=== PATIENT | female | born 1990 | race Caucasian/White ===

== ENCOUNTER 2025-06-26 14:53 | Outpatient (REF) | payer MEDICAID, SELFPAY ==
--- OUTSIDE RECORDS SUMMARY | 2025-06-26 14:40 | XMS_ITS | Encounter Summary ---
Author Organization [employer] Address [address] [place] [id number] Care Team Providers Care Distribution Sales Manager Name Role Phone Girish Spaulding MD Primary Care Prov ider Reason for Referral * Consultation (Urgent) - Pending Review Specialty Diagnoses / Procedures Referred By Contac t Referred To Contact Physical Therapy Diagnoses Pain of left scapula Taylor Daily DO [address] [place] [address] Phone: tel: fax: Referral ID Status Reason Start Date Expiration Date Visits Requested Visits Authorized [id number] Pending Review Specialty Services Required 06/26/2025 06/26/2026 1 1 * Imaging (Routine) - Authorized Specialty Diagnoses / Procedures Referred By Contac t Referred To Contact Radiology Diagnoses Pelvic pain Menorrhagia with regular cycle Procedures US Pelvis Transvaginal Taylor Daily DO [address] [place] [address] Phone: tel: fax: [facility] [address] [facility], [address] [place] [address] Phone: tel: fax: Referral ID Status Reason Start Date Expiration Date V isits Requested Visits Authorized [id number] Authorized 06/26/2025 06/26/2026 1 1 * Imaging (Routine) - Authorized Specialty Diagnoses / Procedures Referred By Tayo aggarwal Referred To Contact Radiology Diagnoses Pelvic pain Menorrhagia with regular cycle Procedures Us Pelvis complete Taylor Daily DO [address] [place] [address] Phone: tel: fax: [facility] [address] [facility], [address] [place] [address] Phone: tel: fax: Referral ID Status Reason Start Date Expiration Date V isits Requested Visits Authorized [id number] Authorized 06/26/2025 06/26/2026 1 1 Encounter Details Date Type Department Care Team (Late st Contact Info) Description 06/26/2025 2:40 PM EDT Office Visit [facility] [address] [place], [place] [id number] Pain of left scapula (Primary Dx); Pelvic pain; Menorrhagia with regular cycle Social History Tobacco Use Types Packs/Day Years Used Date Smoking Tobacco: Never Smokeless Tobacco: Never Alcohol Use Standard Drinks/Week Comments Yes 0 (1 standard drink = 0.6 oz pur e alcohol) once every 2-3 months Depression Answer Date Recorded Patient Health Questionnaire-9 Score 0 06/03/2025 Patient Health Questionnaire-9 Score 0 06/03/2025 Last PHQ-9: Questionnaire Data Not on file 0 06/03/2025 Housing Stability Answer Date Recorded What is your housing situation today? I have phillip stanley 06/03/[address] you li ve. Do you have problems with any of the following? None of the above 06/03/2025 Food Insecurity Answer Date Recorded Within the past 12 months, y ou worried that your food would run out before you got money to buy more: Never True 06/03/2025 Within the past 12 months,th e food you bought just didn't last and you didn't have enough money to get more: Never True 09/2025 Transportation Answer Date Recorded In the past 12 months, has l ack of transportation kept you from medical appts, meetings, work or from getting things needed for daily living? No 06/03/2025 Utilities Answer Date Recorded In the past 12 months, has t he electric, gas, oil or water company threatened to shut off services in your home? No 06/03/2025 Depression Answer Date Recorded Patient Health Questionnaire-2 Score 0 06/03/2025 Internet Access Answer Date Recorded Internet Access Q1 Yes 06/03/2025 Internet Access Q2 Not on file 06/03/2025 Comments No Sex and Gender Information Value Date Recorded Sex Assigned at Female 08/22/2022 10:37 AM EDT Legal Sex Female 10:37 AM EDT Gender Identity Female 08/22/2022 10:37 AM EDT Sexual Orientation Straight 08/22/2022 10 :37 AM EDT documented as of this encounter Last Filed Vital Signs Vital Sign Reading Time Taken Comments Blood Pressure 123/77 06/26/2025 2:09 PM EDT Pulse 80 06/26/2025 2:09 PM EDT Temperature 36.8 C (98.3 F) 06/26/2025 2:09 PM EDT Respiratory Rate 20 06/26/2025 2:09 PM EDT Oxygen Saturation 99% 06/26/2025 2:09 PM EDT Inhaled Oxygen Concentration - - Weight 87.5 kg (193 lb) 06/26/2025 2:09 PM EDT Height 160 cm (5' 3 ) 06/26/2025 2:09 PM EDT Body Mass Index 34.19 06/26/2025 2:09 PM EDT documented in this encounter Plan of Treatment Scheduled Orders Name Type Priority Associated Diagnoses Order Schedule POCT Urine Point of Care Testing Routine Pain of left scapula Pelvic pain Menorrhagia with regular cycle Ordered: 06/26/2025 Chlamydia/N. Gonorrhoeae RNA, TMA, Vaginal Microbiology Routine Pain of left scapula Pelvic pain Menorrhagia with regular cycle Ordered: 06/26/2025 Bacterial Vaginosis Panel Microbiology Routine Pain of left scapula Pelvic pain Menorrhagia with regular cycle Ordered: 06/26/2025 T4, Free Lab Routine Pain of left scapula Pelvic pain Menorrhagia with regular cycle Expected: 06/26/2025 (Approximate), Expires: 06/26/2026 Lipid Panel, Standard Lab Routine Pain of left scapula Pelvic pain Menorrhagia with regular cycle Expected: 06/26/2025 (Approximate), Expires: 06/26/2026 TSH Lab Routine Pain of left scapula Pelvic pain Menorrhagia with regular cycle Expected: 06/26/2025 (Approximate), Expires: 06/26/2026 Vitamin D, 25-Hydroxy, Total, Immunoassay Lab Routine Pain of left scapula Pelvic pain Menorrhagia with regular cycle Expected: 06/26/2025 (Approximate), Expires: 06/26/2026 Hepatic Function Panel Lab Routine Pain of left scapula Pelvic pain Menorrhagia with regular cycle Expected: 06/26/2025 (Approximate), Expires: 06/26/2026 Hemoglobin A1c Lab Routine Pain of left scapula Pelvic pain Menorrhagia with regular cycle Expected: 06/26/2025 (Approximate), Expires: 06/26/2026 Basic Metabolic Panel Lab Routine Pain of left scapula Pelvic pain Menorrhagia with regular cycle Expected: 06/26/2025 (Approximate), Expires: 06/26/2026 Hepatitis B surface antigen, EIA Lab Routine Pain of left scapula Pelvic pain Menorrhagia with regular cycle Expected: 06/26/2025 (Approximate), Expires: 06/26/2026 HIV-1/2 Antigen and Antibodies, Fourth Generation, with Reflexes Lab Routine Pain of left scapula Pelvic pain Menorrhagia with regular cycle Expected: 06/26/2025 (Approximate), Expires: 06/26/2026 Hepatitis C Antibody with Reflex to HCV, RNA, Quantitative, Real-Time PCR Lab Routine Pain of left scapula Pelvic pain Menorrhagia with regular cycle Expected: 06/26/2025, Expires: 06/26/2026 RPR (Monitor) with Reflex to Titer Lab Routine Pain of left scapula Pelvic pain Menorrhagia with regular cycle Expected: 06/26/2025, Expires: 06/26/2026 Hepatitis B Surface Antibody, Qualitative Lab Routine Pain of left scapula Pelvic pain Menorrhagia with regular cycle Expected: 06/26/2025 (Approximate), Expires: 06/26/2026 Vitamin B12 (Cobalamin) and Folate Panel, Serum Lab Routine Pain of left scapula Pelvic pain Menorrhagia with regular cycle Expected: 06/26/2025, Expires: 06/26/2026 Ferritin Lab Routine Pain of left scapula Pelvic pain Menorrhagia with regular cycle Expected: 06/26/2025, Expires: 06/26/2026 Iron And Total Iron Binding Capacity Lab Routine Pain of left scapula Pelvic pain Menorrhagia with regular cycle Expected: 06/26/2025, Expires: 06/26/2026 Hepatitis A Antibody, Total Lab Routine Pain of left scapula Pelvic pain Menorrhagia with regular cycle Expected: 06/26/2025 (Approximate), Expires: 06/26/2026 Hepatitis B Core Antibody, Total Lab Routine Pain of left scapula Pelvic pain Menorrhagia with regular cycle Expected: 06/26/2025 (Approximate), Expires: 06/26/2026 CBC auto differential Lab Routine Pain of left scapula Pelvic pain Menorrhagia with regular cycle Expected: 06/26/2025 (Approximate), Expires: 06/26/2026 Us Pelvis complete Imaging Routine Pelvic pain Menorrhagia with regular cycle Expected: 06/26/2025, Expires: 06/26/2026 US Pelvis Transvaginal Imaging Routine Pelvic pain Menorrhagia with regular cycle Expected: 06/26/2025, Expires: 06/26/2026 Scheduled Referrals Name Type Priority Associated Diagnoses Orde r Schedule Referral to Physical Therapy Outpatient Referral Urgent Pain of left scapula Expected: 06/26/2025 (Approximate), Expires: 06/26/2026 documented as of this encounter Visit Diagnoses Diagnosis Pain of left scapula- Primary Pelvic pain Menorrhagia with regular cycle documented in this encounter Additional Health Concerns Assessment Noted Time PHQ-9 Depression Total Score: 0 06/03/20 25 2:45 PM EDT documented as of this encounter Care Teams Distribution Sales Manager Relationship Specialty Start Date End Date Girish Spaulding MD [address] [place] [phone] PCP - General Internal Medicine 03/02/22 documented as of this encounter
--- OUTSIDE RECORDS SUMMARY | 2025-06-26 16:03 | XMS_ITS | Encounter Summary ---
Author Organization [email or web address] Address [address] [facility] [address]t [place] [address] Care Team Providers Care Research Food Technologist Name Role Phone Girish Spaulding MD Primary Care Prov ider Encounter Details Date Type Department Care Team (Latest Contact Info) Description 06/26/2025 Travel Social History Tobacco Use Types Packs/Day Years [...] AM EDT documented as of this encounter Plan of Treatment Not on file documented as of this encounter Visit Diagnoses Not on filedocumented in this encounter Additional Health Concerns Assessment Noted Time PHQ-9 Depression Total Score: 0 06/03/20 25 2:45 PM EDT documented as of this encounter Care Teams Research Food Technologist Relationship Specialty Start Date End Date Girish Spaulding MD [address] [place] [id number] PCP - General Internal Medicine 03/02/22 documented as of this encounter
--- OUTSIDE RECORDS SUMMARY | 2025-06-26 16:03 | XMS_ITS | Encounter Summary ---
Author Organization [employer] Address [address] [facility] 7[address] [place] [address] Care Team Providers Care Timber Buyer Name Role Phone Girish Spauldign MD Primary Care Prov ider Encounter Details Date Type Department Care Team ([facility] st Contact Info) Description 06/25/[address] [facility] () Department [address] [place] [id number] Provider, Population Health Generic Social History Tobacco Use Types Packs/Day Years [...] Access Q2 Not on file 06/03/2025 Comments Unknown Sex and Gender Information Value Date Recorded [...] documented as of this encounter Care Teams Timber Buyer Relationship Specialty Start Date End Date Girish Spaulding MD [address] [place] [phone] PCP - General Internal Medicine 03/02/22 documented as of this encounter
--- OUTSIDE RECORDS SUMMARY | 2025-06-26 16:03 | XMS_ITS | Clinical Summary ---
Author Organization [employer] Address [address] [place] [address] [address] [place] [address] Care Team Providers Care Managed Care Provider Name Role Phone Girish Spaulding MD Primary Care Prov ider Allergies No known active allergies Medications phentermine 15 MG capsule Take 1 capsule (15 mg) by mouth before breakfast. 30 capsule 5 07/03/20 25 Active topiramate (Topamax) 50 MG tablet Take 1 tablet (50 mg) by mouth Once per day. 90 tablet 3 5 06/03/20 26 Active medroxyPROGESTE Bryan (Provera) 5 MG tablet Take 1 tablet (5 mg) by mouth Once per day for 10 days. 10 tablet 5 07/06/20 25 Active baclofen (Lioresal) 10 MG tablet Take 1 tablet (10 mg) by mouth if needed in the morning, at noon, and at bedtime for muscle spasms. 60 tablet 1 5 08/25/20 25 Active acetaminophen (Tylenol 8 Hour) 650 MG ER tablet Take 1 tablet (650 mg) by mouth every 8 (eight) hours if needed for mild pain. Do not crush, chew, or split. 40 tablet 1 5 07/26/20 25 Active Diclofenac Sodium 1 % gel Apply 2 g topically if needed in the morning, at noon, in the evening, and at bedtime (pain). 150 g 3 5 Active naproxen (Naprosyn) 500 MG tablet Take 1 tablet (500 mg) by mouth if needed in the morning and at bedtime for mild pain. 40 tablet 1 5 06/26/20 26 Active lidocaine (Lidoderm) 5 % patch Apply 1 patch topically if needed each day for mild pain. Remove & discard patch within 12 hours or as directed by . 30 patch 3 5 06/26/20 26 Active Active Problems Problem Noted Date Diagnosed Date Obesity (BMI 30.0-34.9) 06/26/2025 Assessment & Plan (06/26/2025 2:20 PM EDT): Will start on phentermine and topamax, risk vs benefits were discussed, follow up in 3 months Encounter for medical examination to establish c are 06/03/2025 Assessment & Plan (06/03/2025 3:12 PM EDT): Last pcp visit 2020 ER:- Hospitalization: cse 2015, 2014 due to ovary cyst PMHx: - Pshx: 2015 ovary cyst, csec 2015, abdominoplasty 2022 All:- Meds: - Menarche 11 LMP: 05/28/25 A0 Sexually active with 1 partner has IUD since 2020 Encounters Date Type Department Care Team Description 06/26/2025 2:40 PM EDT Office Visit [facility] [address] [place], [place] [phone] Pain of left scapula (Primary Dx); Pelvic pain; Menorrhagia with regular cycle 06/26/2025 Travel 06/25/2025 Population Health Risk Score [facility] Department [address] [phone] Provider, Population Health Generic 06/03/2025 2:45 PM EDT Telemedicine [facility] [address] [place], [place] [phone] Girish Spaulding MD Encounter for medical examination to establish care (Primary Dx); Obesity (BMI 30.0-34.9) 06/03/2025 Travel 06/02/2025 Travel from Last 3 Months Family History Medical History Relation Name Comments Hypertension Father Hyperlipidemia Mother Hypertension Mother Breast cancer Mother's Sister Relation Name Status Comments Father Mother Mother's Sister Social History Tobacco Use Types Packs/Day Years Used Date Smoking Tobacco: Never Smokeless Tobacco: Never Tobacco Cessation:Counseling Given: Not Answered Alcohol Use Standard Drinks/Week Comments Yes 0 [...] Orientation Straight 08/22/2022 10 :37 AM EDT Last Filed Vital Signs Vital Sign Reading [...] Mass Index 34.19 06/26/2025 2:09 PM EDT Plan of Treatment Health Maintenance Due Date Last Done Comments Family Planning (PISQ) 2003 HPV Vaccines (1 - 3-dose series) 2003 Hepatitis C Screening 2006 DTaP/Tdap/Td Vaccines (1 - Tdap) 2007 Hepatitis B Vaccines (1 of 3 - 19+ 3-dose series) 2007 COVID-19 Vaccine ( - 2024-2 6 season) 2025 08/02/2021, 07/05/2021 Influenza Vaccine (#1) 2025 Cervical Cancer Screening 03/30/2026 HPV/Cotest 03/30/2026 03/30/2021 Pap Smear 03/30/2026 03/30/2021 Disability Screening 06/02/2026 06/02/2025 Alcohol/Substance Use Screening 06/03/2026 06/03/2025 Depression Screening 06/03/2026 06/03/2025, 06/03/2025 SDOH Screening 06/03/2026 06/03/2025 Tobacco Screening 06/26/2026 06/26/2025 Zoster Vaccines (1 of 2) 2038 RSV Patients and Patients Aged 60 years or older (1 - 1-dose 75+ series) 2063 HIV Screening Completed 03/16/2021 HIB Vaccines Aged Out No longer eligi ble based on patient's age to complete this topic Hepatitis A Vaccines Aged Out No long er eligible based on patient's age to complete this topic IPV Vaccines Aged Out No longer eligi ble based on patient's age to complete this topic Meningococcal B Vaccine Aged Out No l onger eligible based on patient's age to complete this topic Meningococcal Vaccine Aged Out No abraham constantine eligible based on patient's age to complete this topic Pneumococcal Vaccine: Pediatrics (0 to 5 Years) and At-Risk Patients (6 to 49) Years Aged Out No longer eligible b ased on patient's age to complete this topic RSV under 20 months Aged Out No longe r eligible based on patient's age to complete this topic Rotavirus Vaccines Aged Out No longer eligible based on patient's age to complete this topic Procedures Procedure Name Priority Date/Time Associated Diagnosis Comments HPV MRNA E6/E7 Routine 03/30/2021 9:40 AM EDT THINPREP PAP Routine 03/30/2021 9:40 AM EDT HIV 1/2 ANTIGEN/ANTIBODY, FOURTH GENERATION W/RFL Routine 03/16/2021 11:25 AM EDT from Last 3 Months or Most Recently Relevant to Health Maintenance Results * THINPREP PAP (03/30/2021 9:40 AM EDT) Clinical Information: None given [facility] COMMENT SEE COMMENT [facility] Comment: EXPLANATORY NOTE: The Pap is a screening test for cervical cancer. It is not a diagnostic test and is subject to false negative and false positive results. It is most reliable when a satisfactory sample, regularly obtained, is submitted with relevant clinical findings and history, and when the Pap result is evaluated along with historic and current clinical information. Vest Front Presser : SEE COMMENT [facility] Comment: JANES CARTWRIGHT(ASCP) CT screening location: [place] [address] Infection Shift in vaginal maribel suggestive of bacterial vaginosis. [facility] Interpretation/R esult: Negative for intraepithelial lesion or malignancy. [facility] LMP: 03/17/21 [facility] Prev. BX: S/P CRYO 10 YRS AGO,NIL SINCE [facility] Prev. PAP: NONE GIVEN [facility] SOURCE: None given [facility] Statement Of Adequacy: SEE COMMENT [facility] Comment: Satisfactory for evaluation. Endocervical/transformation zone component present. 03/30/2021 9:40 AM EDT Zaynab Stratton CNM LAB PATHOLOGY ORDERABLES Final Result [facility] [address] [place] [address], * HPV mRNA E6/E7 (03/30/2021 9:40 AM EDT) Pathologist [facility] HPV nRNA E6/E7 Not Detected Not Detected [facility] Comment: Methodology: Mold Sheet Cleaner-Mediated Amplification This assay detects E6/E7 viral messenger RNA (mRNA) from 14 high-risk HPV types (16,18,31,33,35,39,45,51,52,56,58,59,66,68). The analytical performance characteristics of this assay have been determined by [employer]. The modifications have not been cleared or approved by the FDA. This assay has been validated pursuant to the CLIA regulations and is used for clinical purposes. For additional information, please refer to http://P[employer]pass.[employer]/faq/IKR724x1 (This link if provided for information/ educational purposes only.) 03/30/2021 9:40 AM EDT Zaynab Stratton [facility] LAB BLOOD ORDERABLES Vanita l Result [facility] [address] [place] [address], * HIV 1/2 ANTIGEN/ANTIBODY,FOURTH GENERATION W/RFL (03/16/2021 11:25 AM EDT) [facility] HIV-1/2 ANTIGEN AND ANTIBODIES, 4TH GENERATION W/ REFLEX NON-REACT YAZ NON-REACT YAZ [facility] Comment: HIV-1 antigen and HIV-1/HIV-2 antibodies were not detected. There is no laboratory evidence of HIV infection. PLEASE NOTE: This information has been disclosed to you from records whose confidentiality may be protected by state law. If your state requires such protection, then the state law prohibits you from making any further disclosure of the information without the specific written consent of the person to whom it pertains, or as otherwise permitted by law. A general authorization for the release of medical or other information is NOT sufficient for this purpose. For additional information please refer to http://Privepass.[employer]/faq/GZQ372 (This link is being provided for informational/ educational purposes only.) The performance of this assay has not been clinically validated in patients less than 2 years old. 03/16/2021 11:2 5 AM EDT Girish Chan MD LAB BLOOD ORDERABL ES Final Result [facility] [address] [place] [address], from Last 3 Months or Most Recently Relevant to Health Maintenance Insurance [employer] Care Teams Managed Care Provider Relationship Specialty Start Date End Date Girish Spaulding MD [address] [place] [id number] PCP - General Internal Medicine 03/02/22
[2025-06-26 16:10] LABS: MANUAL DIFF FLAG NO
[2025-06-26 16:20] LABS: Hematocrit 36.9 % (37.0-47.0); Hemoglobin 12.8 g/dl (12.0-16.0); Imm Gran Abs Auto 0.03 X10*3/uL (0.00-0.03); Imm Gran Pct Auto 0.3 % (0.0-0.4); Lymphocytes Absolute Auto 2.8 X10*3/uL (1.2-4.9); Mean Corpuscular HGB Conc 34.7 g/dl (31.0-35.0); Mean Corpuscular Hemoglobin 31.8 pg (27.0-33.0); Mean Corpuscular Volume 91.6 fL (80.0-98.0); NRBC Abs Auto 0.000 X10*3/uL (0.0-0.012); NRBC Pct Auto 0.0 /100WBC (0.0-0.2); Platelet Count 299 X10*3/uL (160-400); Red Blood Count 4.03 X10*6/uL (4.20-5.50); White Blood Count 9.2 X10*3/uL (4.8-10.8)
[2025-06-26 16:30] LABS: Hemoglobin A1C 114.3064 umol/L; Total Hemoglobin (HGBA1C) 3299.4354 umol/L
[2025-06-26 16:32] LABS: Alanine Aminotransferase 24 U/L (0-31); Albumin Level 4.0 g/dL (3.5-5.0); Alkaline Phosphatase 59 U/L (39-117); Anion Gap 11 (12-20); Aspartate Amino Transferase 26 U/L (5-31); Blood Urea Nitrogen 13 mg/dL (9-16); Calcium 8.5 mg/dL (8.4-10.2); Carbon Dioxide 26 mmol/L (22-29); Chloride 107 mmol/L (96-108); Cholesterol 182 mg/dL (<200); Estimated Glomerular Filt Rate > 60; HDL Cholesterol 57 mg/dL (>40); Iron 78 mcg/dL (30-160); Percent Iron Saturation 27 % (15-50); Potassium 3.7 mmol/L (3.3-5.1); Sodium 140 mmol/L (135-145); Total Iron Binding Capacity 291 mcg/dL (228-428); Total Protein 6.8 g/dL (6.5-8.0); Triglycerides 136 mg/dL (<150); Unsaturated Iron Binding 213 ug/dL
[2025-06-26 16:49] LABS: Ferritin 55 ng/mL (10-122); Free T4 (Free Thyroxine) 1.05 ng/dL (0.71-1.85); Thyroid Stimulating Hormone 1.07 uIU/mL (0.32-4.0)
[2025-06-26 17:05] LABS: Folate 12.7 ng/mL (> or = 4.0); Vitamin B12 799 pg/mL (200-900)
[2025-06-26 17:35] LABS: Bacterial Vaginosis PCR POSITIVE (Negative); Candida Group PCR NOT DETECTED (Not Detect); Candida glab krusei PCR NOT DETECTED (Not Detect); Trichomonas vaginalis PCR NOT DETECTED (Not Detect)
[2025-06-26 18:07] LABS: CT PCR NOT DETECTED (Not Detect.); NG PCR NOT DETECTED (Not Detect.)
[2025-06-27 04:40] LABS: HBS Num1 205.66 mIU/mL (0-7.99); HBc Num1 0.11 S/CO (0.00-0.79); HBsAGNum1 0.38 S/CO (0.00-0.99); HIV Num 1 0.06 S/CO (0.00-0.99); Hepatitis B Surface Antigen Negative (Negative); ~HepC Num1 0.11 S/CO (0.00-0.79); ~Hepatitis B Surface Antibody REACTIVE (Nonreactive); ~Hepatitis C Antibody Nonreactive (Nonreactive)
[2025-06-27 04:48] LABS: ~Hepatitis A Antibody IgG 0.37 S/CO (0.00-0.99)
== END 2025-06-26 14:54 | disposition home or self-care (01) ==
LOC: HO.HHCL 14:53
PROVIDERS: PCP Family Medicine; Visit Provider Family Medicine
DX: M89.8X1 Other specified disorders of bone, shoulder (principal); R10.2 Pelvic and perineal pain; N92.0 Excessive and frequent menstruation with regular cycle; Z01.84 Encounter for antibody response examination; Z11.3 Encounter for screening for infections with a predominantly sexual mode of transmission; Z11.8 Encounter for screening for other infectious and parasitic diseases; Z11.59 Encounter for screening for other viral diseases; Z11.4 Encounter for screening for human immunodeficiency virus [HIV]
CPT/HCPCS: 36415; 80048; 80061; 80076; 81515; 82306; 82607; 82728; 82746; 83036; 83540; 84439; 84443; 85025; 86592; 86704; 86706; 86708; 86803; 87340; 87389; 87491; 87591